=== PATIENT | female | born 1955 | race Caucasian/White ===

== ENCOUNTER → 2021-03-10 | Outpatient (CLI) | payer MEDICARE, OTHER ==
--- NOTE | 2021-03-11 13:23 | Diagnostic Imaging Report ---
INDICATION: Routine screening. Comparison is made prior mammogram 09/05/2018 and 09/02/2017. 2-D and 3-D bilateral screening mammography was performed with CAD. Bilateral breast implants again noted. Implant contours appear stable. There are some calcifications of the implant shells bilaterally. No definite evidence of extracapsular rupture is seen. Breast parenchyma does show some scattered fibroglandular elements. No mass or malignant appearing microcalcifications are seen. Axillae are unremarkable. IMPRESSION: BI-RADS Category 2 No mammographic features suspicious for malignancy are identified. ACR BI-RADS Category 2: Benign findings. Result letter will be mailed to the patient. Note: At least 10% of breast cancer is not imaged by mammography. Dictated by: Dictated on workstation # [id number]
== END ==
LOC: RAD 12:54
PROVIDERS: ATTEND Nurse Practitioner Family
DX: Z12.31 Encounter for screening mammogram for malignant neoplasm of breast (principal)
CPT/HCPCS: 77063; 77067